=== PATIENT | female | born 1960 | race Caucasian/White ===

== ENCOUNTER 2022-08-06 05:58 | Day surgery (SDC) | payer BC ==
[2022-08-04 14:35] VITALS: BMI 35.6
[2022-08-06] MEDS ORDERED: PROPOFOL 60 ML ONE (07:30)
[2022-08-06] MEDS ORDERED: Lidocaine 1% PF 5 ML VIAL ONE (07:30)
[2022-08-06] MEDS ORDERED: PROPOFOL 20 ML ONE (08:04)
== END 2022-08-06 09:00 | disposition home or self-care (01) ==
LOC: CSHSDC 05:58
PROVIDERS: ATTEND Surgery
PROC: 0DJ08ZZ Inspection of Upper Intestinal Tract, Via Natural or Artificial Opening Endoscopic (ICD-10-PCS; principal; 2022-08-06)
PROC: 0DDE8ZX Extraction of Large Intestine, Via Natural or Artificial Opening Endoscopic, Diagnostic (ICD-10-PCS; principal; 2022-08-06)
DX: Z12.11 Encounter for screening for malignant neoplasm of colon (principal); D12.6 Benign neoplasm of colon, unspecified; K44.9 Diaphragmatic hernia without obstruction or gangrene; K57.30 Diverticulosis of large intestine without perforation or abscess without bleeding; K64.8 Other hemorrhoids; K21.9 Gastro-esophageal reflux disease without esophagitis; I10 Essential (primary) hypertension; E78.5 Hyperlipidemia, unspecified; Z79.899 Other long term (current) drug therapy; Z88.0 Allergy status to penicillin; Z87.891 Personal history of nicotine dependence
CPT/HCPCS: 88305; J2704

== ENCOUNTER 2023-10-13 12:15 | Outpatient (CLI) | payer BC | END 2023-10-13 12:16 | disposition home or self-care (01) | LOC: CSHRAD 12:15 | PROVIDERS: ATTEND Family Medicine | DX: M25.551 Pain in right hip (principal) ==